=== PATIENT | male | born 1950 | race Caucasian/White ===

== ENCOUNTER 2018-04-02 06:30 | Day surgery (SDC) | payer OTHER ==
[2018-04-01 09:00] LABS: Absolute Lymphocytes (CBC) 2.4 K/uL (0.7-4.9); Absolute Monocytes 0.7 K/uL (0.1-1.3); Absolute Neutrophil 5.5 K/uL (1.8-8.0); Basophils % 0.7 % (0-1.3); Eosinophils % 4.2 % (0-4.4); Hematocrit 46.8 % (39.6-49.0); Lymphocytes % 26.3 % (15.3-44.8); MPV 7.9 fL (7.6-11.3); Monocytes % 7.9 % (3.3-12.3); RBC Red Blood Cell Count 5.15 M/uL (4.33-5.43)
[2018-04-01 09:15] LABS: BUN Blood Urea Nitrogen 19 mg/dL (7-18); Bicarbonate 24 mmol/L (21-32); Glucose Level 123 mg/dL (74-106); Potassium 4.5 mmol/L (3.5-5.1); Protime INR 1.01; Sodium Level 140 mmol/L (136-145)
--- NOTE | 2018-04-01 14:36 | EKG ---
Test Date: 2018-04-01 Test Time: 08:40:47 Food Vendor: [employer] MEASUREMENT RESULTS: Intervals: Rate: 61 WA: 172 QRSD: 98 QT: 422 QTc: 424 Scobey: P: 16 WA: 172 QRS: 55 T: 47 INTERPRETIVE STATEMENTS: Normal sinus rhythm Incomplete right bundle branch block Borderline ECG Compared to ECG 06/17/2016 09:24:12 Incomplete right bundle-branch block now present Sinus bradycardia no longer present Electronically Signed On 04-01-18 14:34:04 [employer]LE[employer] by Hector Olmstead
[~2018-04-02 06:30] MED LIST: CEFAZOLIN/SWI 2gm 2 GM/20 ML SYR IV SCH
[2018-04-02] MEDS ORDERED: Ringers Lactate 1,000 ML IV ONE ×2 (06:47→10:09)
[2018-04-02] MEDS ORDERED: LIDOCAINE 2% MPF 5 ML VIAL ONE (08:56)
[2018-04-02] MEDS ORDERED: PROPOFOL 200 MG/20 ML VIAL IV ONE (08:56)
[2018-04-02] MEDS ORDERED: FENTANYL CITR 100 MCG/2 ML ONE ×3 (08:56→12:36)
[2018-04-02] MEDS ORDERED: MIDAZOLAM HCL 2 MG/2 ML INJ ONE (08:57)
[2018-04-02] MEDS: BUPIVACA 0.5%/EPI 0.0005%/PF 30 ML VIAL ONE ×2 (09:34→11:20)
[2018-04-02] MEDS ORDERED: MEPERIDINE HCL 25 MG/0.5 ML ONE (09:47)
[2018-04-02] MEDS ORDERED: EPHEDRINE SULF 50 MG/10 ML SYR ONE (09:55)
[2018-04-02] MEDS ORDERED: Phenylephrine HCl 10 MG/ML 1 ML VIAL ONE (10:24)
--- NOTE | 2018-04-02 11:33 | RAD REPORT ---
EXAM DESCRIPTION: RAD - Elbow Left 2 View - 04/02/2018 11:16 am CLINICAL HISTORY: BICEP TENDON REPAIR COMPARISON: Elbow Left Wo Cont dated 03/29/2018 FINDINGS: Fluoroscopic imaging of the left forearm is submitted from biceps tendon repair procedure. Details of the procedure are not available. Total fluoro time 0.2 minutes.
--- NOTE | 2018-04-02 11:40 | P.BOP ---
Preoperative diagnosis: left distal biceps rupture Postoperative diagnosis: same Primary procedure: left distal biceps repair Finishing Lab Technician: NONE,NONE Estimated blood loss: 10 cc Specimen: none Findings: see dictation Anesthesia: General Complications: None Implants: Arthrex biceps button and 7x10 mm tenodesis screw Fluids & blood products: per anesthesia Transferred to: Recovery Room Condition: Good
[2018-04-02] MEDS ORDERED: FENTANYL CITR 250 MCG/5 ML ONE (11:55)
[2018-04-02] MEDS: FENTANYL CITR 100 MCG/2 ML ONE ×2 (11:56→12:11)
[2018-04-02] MEDS ORDERED: ONDANSETRON 4 MG/2 ML VIAL ONE ×2 (11:58→12:00)
[2018-04-02] MEDS ORDERED: PROMETHAZINE 25 MG/ML VIAL ONE (12:14)
--- NOTE | 2018-04-02 12:25 | RAD REPORT ---
EXAM DESCRIPTION: RAD - Elbow Left 2 View - 04/02/2018 12:10 pm CLINICAL HISTORY: post-op S/p biceps repair COMPARISON: Elbow Left 2 View dated 04/02/2018 FINDINGS: Soft tissue swelling is seen about the elbow. A small surgical clip is noted in the region of the radial tuberosity. No unusual or unexpected finding.
[2018-04-02] MEDS ORDERED: HYDROCODONE/APAP 7.5/325 MG TAB ONE (13:20)
--- NOTE | 2018-04-06 12:52 | OP ---
Date of Procedure: 04/02/2018 Surgeon: Ramiro Cabrera MD Preoperative Diagnosis: Left distal biceps rupture. Postoperative Diagnosis: Left distal biceps rupture. Procedure Performed: Left distal biceps repair. Anesthesia: General LMA. Fluids: Per Anesthesia record. Estimated Blood Loss: 10 cc. Complications: None. Implants: Arthrex biceps button and a 7 x 10 mm tenodesis screw. Tourniquet: No tourniquet was used. Indication For Procedure: Ion is a 68-year-old male who presented to my clinic with signs, symptoms, and MRI findings consistent with a complete left distal biceps tendon rupture. I discussed with the patient at length risks and benefits associated with operative and nonoperative treatment at length and he expressed understanding, and given his dominant extremity as well as the continued pain, he elected to proceed with operative treatment. Description Of Procedure: After informed consent was obtained, the patient was identified in the preoperative holding area. The left upper extremity was marked. The patient was then brought back to the operating room, transferred to the operating table in supine fashion, placed under general LMA anesthesia. The left upper extremity was then prepped and draped in usual sterile fashion. A time-out was initiated. Correct patient and procedure were confirmed and identified. The patient did receive his preoperative prophylactic antibiotics. A curvilinear incision was made over the proximal forearm near the antecubital fossa centered over the proximal radius. Dissection was then taken in antecubital fossa and hemostasis was completed using bipolar electrocautery as well as tying off superficial veins with 2-0 silk as necessary. The biceps tendon was then identified. It was thickened and torn within the sheath which was attached to the bicipital tuberosity. However, within the sheath, it was noted that the biceps tendon was torn, hypertrophied, and not healthy. The devitalized tissue was then debrided off the distal end of the biceps tendon and it was prepared by completing whipstitch using a FiberLoop over the distal 2.5 cm. It was marked a centimeter from the end and it was set aside. Next, attention was taken down to the bicipital tuberosity. Any soft tissue remnants on the bicipital tuberosity were debrided using the grande elevator, and using fluoroscopy, the center of the bicipital tuberosity was identified. The hand was held in full supination throughout the case to protect the posterior interosseous nerve. Once the center of the bicipital tuberosity was encountered , a 3.2 mm guide pin was then placed in a bicortical fashion out the dorsal aspect of the proximal radius. Once proper positioning was confirmed using fluoroscopy, a unicortical tunnel was made using an 8 mm reamer and the tendon had been measured earlier and it did pass through the 7 mmmeasuring guide. Next , the bony remnants were then removed using irrigation as well as suction, and the elbow was held in approximately 20 degrees of flexion, and using the Arthrex biceps button which was passed through the far cortex and the button was flipped and the biceps tendon was brought into the tunnel without complication. It had been marked at 1 cm and biceps tendon was fully seated within the tunnel. It was then tied, suture was then passed through the distal biceps and it was tied off, and a 7 x 10 mm tenodesis screw was then placed along the radial aspect of the biceps tendon within the tunnel and was found to be flush with the bone with good overall fit. Sutures were then tied over again and remaining sutures were cut. The elbow was then ranged and there was no excursion of the tendon within the tunnel with good overall fit. The wound was then irrigated thoroughly with normal saline and subcutaneous tissues were approximated using 2-0 Vicryl. Skin was approximated using 3-0 nylon in horizontal mattress fashion. Sterile dressings were applied. The patient was placed in a posterior splint at approximately 90 degrees of elbow flexion and he was awakened and transferred to PACU in stable condition. Postoperative Plan: He will be nonweightbearing on his left upper extremity. He will follow up in my clinic in 1 week for wound check and placement of a hinged elbow brace. SORAIDA/TANIA Voice ID: [id number] Report ID: [id number] NII
== END 2018-04-02 14:25 | disposition home or self-care (01) ==
LOC: OR 06:30
PROVIDERS: ATTEND Orthopaedic Surgery Sports Medicine
PROC: 0LM40ZZ Reattachment of Left Upper Arm Tendon, Open Approach (ICD-10-PCS; principal; 2018-04-02 10:00)
DX: S46.212A Strain of muscle, fascia and tendon of other parts of biceps, left arm, initial encounter (principal)
CPT/HCPCS: 24342; 36415; 73070 ×2; 80048; 85025; 85610; 85730; 93005; J0690; J2175; J2250; J2405; J2550; J2704; J3010 ×4; J2370